=== PATIENT | male | born 1995 | race Caucasian/White ===

== ENCOUNTER 2020-10-11 21:09 | Outpatient (REF) | payer BC, SELFPAY ==
[2020-10-18 09:48] LABS: COVID-19 RT-PCR UVMMC Result Negative (Negative)
== END 2020-10-11 21:29 ==
LOC: NCHCN 21:09
PROVIDERS: PCP Family Medicine; Visit Provider Nurse Practitioner Family
DX: R50.9 Fever, unspecified (principal)
CPT/HCPCS: U0003

== ENCOUNTER 2022-04-19 08:59 | Outpatient (CLI) | payer SELFPAY ==
--- NOTE | 2022-04-19 08:45 | RT.EKG_ITS ---
APPROVED REPORT Exam: Resting ECG Reason for Exam: svt Patient Location: O HR:59 bpm ECG Measurements Heart Rate 59 AXIS AR 152 P 27 QRSd 111 QRS -12 QT 397 T 48 QTc 394 Conclusion Sinus rhythm...normal P axis, V-rate 50- 99 Baseline wander in lead(s) V2,V6
== END 2022-04-19 09:00 | disposition home or self-care (01) ==
LOC: DI.CARD 09:00
PROVIDERS: PCP Family Medicine; Visit Provider Internal Medicine Cardiovascular Disease
DX: I47.1 Supraventricular tachycardia (principal)
CPT/HCPCS: 93010

== ENCOUNTER → 2022-05-15 00:59 | Outpatient (CLI) | payer BC, SELFPAY ==
--- OUTSIDE RECORDS SUMMARY | 2022-05-15 01:01 | XMS_ITS | Encounter Summary ---
:1995 Author Organization [facility] [address] Care Team Providers Name Role Phone Hue De APRN Primary Care Provider Encounter Details Date Type Department Care Team Description 05/07/2022 Telephone Cardiology at [facility] [place] [address] Social History Tobacco Use Types Packs/Day Years Used Date Never Assessed Sex Assigned at Date Recorded Not on file documented as of this encounter Miscellaneous Notes Telephone Encounter - Margret Richards - 05/07/2022 10:42 AM EDT Faxed request to [facility] for all ECG's (specifically the one done while in the ED, while he was in SVT), ambulatory monitoring and echo report at [phone]. Margret Richards EP Scheduling documented in this encounter Plan of Treatment Not on filedocumented as of this encounter Visit Diagnoses Not on filedocumented in this encounter Care Teams Clothing Sales Assistant Relationship Specialty Start Date End Date Hue De APRN PCP - General Family Medicine 04/25/22 [place] [address] documented as of this encounter
--- OUTSIDE RECORDS SUMMARY | 2022-05-15 01:01 | XMS_ITS | Encounter Summary ---
:1995 Author Organization [facility] Address [address] [place] [address] Care Team Providers Name Role Phone Jemal Andujar MD Primary Care Provider Encounter Details Date Type Department Care Team Description 10/12/2020 Lab Requisition [facility] Outr Resulting Lab, Pathology & Laboratory Provider [facility] [address], [place] [id number] Social History Tobacco Use Types Packs/Day Years Used Date Never Assessed Sex Assigned at Date Recorded Not on file documented as of this encounter Plan of Treatment Not on filedocumented as of this encounter Procedures Procedure Name Priority Date/Time Associated Diagnosis Comme nts COVID-19 TEST [facility] Today 10/11/2020 14:00 LAB PCR EST COVID-19 TESTING Routine 10/11/2020 14:00 Results for this EST procedure are i n the results section. documented in this encounter Results COVID-19 TEST [facility] LAB PCR (10/11/2020 14:00 EST) Specimen Swab - Entire nasopharynx (body structur e) Performing Organization Address City/State/ZIP Code Phon e Number [facility] [address] [place] [address] SERVICES COVID-19 TESTING (10/11/2020 14:00 EST) COVID-19 rt-PCR Negative Negative [facility] Result Comment: [facility] Negative results do not prec lude 2019-nCoV infection and should not be used as the sole basis for treatment or other patient management decisions. Negative results must be combined with clinical observa SERVICES tions, patient history, and epidemiological informatio n. This test was developed and its performance characteristics determined by [facility]. It has not been cleared or approved by the [place] Food and Drug Administration. FDA does not require this test to go through premarket FDA review. This t est is used for clinical purposes. It should not be regarded as investigational or for research. This laboratory is certified under the Clinical Laboratory Improvement Amendm ents (CLIA) as qualified to perform high complexity clinical laboratory testing. This test is based on the CD C COVID-19 Emergency Use Authorization (EUA) assay, with minor modification as defined by the FDA Performed on the [facility] 7 Flex . Performing Lab [place] [facility] Specimen Swab Performing Organization Address City/State/ZIP Code Phon e Number [facility] [address] [place] [address] SERVICES documented in this encounter Visit Diagnoses Not on filedocumented in this encounter Care Teams Passenger Service Representative Relationship Specialty Start Date End Date Jemal Andujar MD PCP - General 09/08/[address] [place] [address] [place] [address] documented as of this encounter
--- OUTSIDE RECORDS SUMMARY | 2022-05-15 01:01 | XMS_ITS | Clinical Summary ---
:1995 Author Organization [facility] Address [address] [place] [address] Care Team Providers Name Role Phone Jemal Andujar MD Primary Care Provider Social History Tobacco Use Types Packs/Day Years Used Date Never Assessed Sex Assigned at Date Recorded Not on file Plan of Treatment Not on file Care Teams Jewelry Bearing Maker Relationship Specialty Start Date End Date Jemal Andujar MD PCP - General 09/08/[address] [place] [address] [place], [place] [address]
--- OUTSIDE RECORDS SUMMARY | 2022-05-15 01:01 | XMS_ITS | Encounter Summary ---
:1995 Author Organization [facility] [place] [address] Care Team Providers Name Role Phone Hue De APRN Primary Care Provider Reason for Referral Consultation (Routine) - Pending Review Specialty Diagnoses / Referred By Referred To Cont act Procedures Contact Electrophysiology / Diagnoses Supraventricular tachycardia Maria E Alcantara MD [facility] Cardiology [address] [place], [place] [address] [address] [place], [place] Phone: [phone] Referral ID Status Reason Start Expiration Visits Visits Date Date Requested Authorized [id number] Pending Consult, 04/25/2022 04/25/2023 6 6 Review Test & Treat PCP Updated and/or Approved Encounter Details Date Type Department Care Team Description 04/25/2022 Transcribe Orders eDH Incoming Maria E Alcantara, Supravent ricular Referrals MD tachycardia [phone] [place] [address] Social History Tobacco Use Types Packs/Day Years Used Date Never Assessed Sex Assigned at Date Recorded Not on file documented as of this encounter Plan of Treatment Scheduled Referrals Name Type Priority Associated Diagnoses Order S chedule Referral to Outpatient Routine Supraventricular Ordered: Cardiology Referral tachycardia 04/25/2022 documented as of this encounter Visit Diagnoses Diagnosis Supraventricular tachycardia Other specified cardiac dysrhythmias documented in this encounter Care Teams Economic Consultant Relationship Specialty Start Date End Date Hue De APRN PCP - General Family Medicine 04/25/22 [place], [place] [id number] documented as of this encounter
--- NOTE | 2022-05-15 15:46 | DI.US_ITS ---
APPROVED REPORT EXAM: Comprehensive 2D, Doppler, and color-flow Echocardiogram Patient Location: Out-Patient Transmitter Engineer In Charge: Klesey Ortiz RDCS (AE) Indications: SVT Other Information Study Quality: Good Conclusion Normal left ventricular chamber size and wall thickness. Estimated ejection fraction is 60 to 65%. Wall motion is normal Normal right ventricular size and systolic function Both atria are normal in size There is no structural or hemodynamically significant valvular disease Estimated right ventricular systolic pressure is 30 mmHg Wall motion Left Ventricle The left ventricle is normal size. The left ventricular systolic function is normal. The left ventric ular ejection fraction is within the normal range. There is normal left ventricular wall thickness. T here is normal LV segmental wall motion. There is no ventricular septal defect visualized. LVEF is 60 -65%. Right Ventricle The right ventricle is normal size. The right ventricular systolic function is normal. The RVSP is 30 .0mmHg. Atria The left atrium size is normal. The right atrium size is normal. The interatrial septum is intact wit h no evidence for an atrial septal defect. Aortic Valve The aortic valve is normal in structure. There is no aortic valvular stenosis. No aortic regurgitatio n is present. Mitral Valve The mitral valve is normal in structure. No evidence of mitral valve stenosis. Trace mitral regurgita tion. Tricuspid Valve The tricuspid valve is normal in structure. There is no tricuspid valve stenosis. Mild tricuspid regu rgitation. Pulmonic Valve The pulmonary valve is normal in structure. There is no pulmonic valvular stenosis. Trace to mild pul shelly regurgitation. Great Vessels The aortic root is normal in size. The ascending aorta is normal in size. Aortic arch is normal in ca liber. IVC is normal in size and collapses >50% with inspiration. Pericardium There is no pericardial effusion. 2D Dimensions IVSD d PLAX 0.89 cm M: 0.6-1.2 LV Vol A2C d MOD 152.8 mL LVPW d PLAX 0.90 cm M: 0.6 - 1.2 LV Vol A4C d MOD 130.1 mL LVID d PLAX 5.62 cm M: 4.2 - 5.8 LA vol/ BSA A2C s A-L 32.1 mL/m2 LVDs 3.60 cm M: 2.5 - 4.0 LA vol/ BSA A4C s A-L 26.2 mL/m2 Ao Root d 3.42 cm M: 3.1 - 3.7 LA Vol/ BSA Biplane s A-L 29.1 mL/m2 RA Area A4C 19.20 cm2 LA Area A4C s MOD 20.80 cm2 RA Vol/ BSA A4C s A-L 22.4 mL/m2 LA Area A2C s MOD 23.11 cm2 Ao Asc Diam d 3.26 cm M: 2.6 - 3.4 LV EF A4C MOD 60.2 % LV EF Teichholz 64.0 % LV EF A2C MOD 65.1 % LVEF (Goldberg's) 62.92 % M: 52 - 72 LV EF Biplane MOD 62.9 % LV Volume 100.48 mL M: 62 - 150 SV 89.06 mL LV Volume Index 42.21 mL/m2 M: 34 - 74 SV Index 37.39 mL/m2 LV Vol Biplane MOD 141.5 mL FS 35.25 % LV Diastology MV E' medial 0.148 (>0.07 m/s) E/A Ratio 1.7 LV E/e MED 6.20 (<14) MV E Vmax 0.92 (0.4-1.3 m/s) MV E' lateral 0.189 (>0.1 m/s) MV A Vmax 0.55 (0.4-1.3 m/s) LV E/e LAT 4.85 (<14) MV E/A Ratio 1.56 MV E/E' medial 6.25 MV E/E' lateral 4.88 Aortic Valve LVOT Area 3.89 cm2 AoV Area Vmax 3.28 cm2 LVOT Vmax 1.33 m/s AoV Area/ BSA (Vmax) 1.38 cm2/m2 LVOT Mean Sadiq. 0.79 m/s MABEL Mean Sadiq. 2.83 cm2 LVOT Peak Grad 7.1 mmHg MABEL Mean Sadiq. Index 1.19 cm2/m2 LVOT Mean Grad 3.1 mmHg LVOT VTI 0.266 m LVOT Diam s 2.20 cm AoV Vmax 1.58 m/s Velocity Ratio 0.84 AoV Mean Sadiq. 1.09 m/s AoV Peak Grad 9.9 mmHg LVOT SV 103.57 mL AoV Mean Grad 5.4 mmHg AoV VTI 0.290 m AoV Area VTI 3.57 cm2 AoV Area/ BSA (VTI) 1.50 cm/m2 Mitral Valve MV DT 177 (160-240 msec) MV PHT 51 msec MV Area PHT 4.29 cm2 MV VTI 0.318 m MV Area VTI 3.26 (4.0-6.0 cm2) Pulmonary Valve PV Vmax 1.13 (0.5-1.5 m/s) RVOT Peak Gr. 2.84 mmHg PV Peak Grad 5.1 mmHg RVOT Mean Gr. 1.35 mmHg PV Mean Grad 2.6 mmHg RVOT VTI 0.192 m PV VTI 0.233 m RVOT Vmax 0.84 m/s Tricuspid Valve TR Peak Grad 27.0 mmHg TR Vmax 2.60 m/s RA Pressure 3.00 mmHg RVSP (TR) 30.0 mmHg
== END ==
PROVIDERS: PCP Nurse Practitioner Family; Visit Provider Internal Medicine Cardiovascular Disease
DX: I47.1 Supraventricular tachycardia (principal)
CPT/HCPCS: 93306

== ENCOUNTER 2022-10-03 09:57 | Outpatient (CLI) | payer BC, SELFPAY ==
--- NOTE | 2022-10-03 09:45 | RT.EKG_ITS ---
APPROVED REPORT Exam: Resting ECG Reason for Exam: palpitations Patient Location: O HR:78 bpm ECG Measurements Heart Rate 78 AXIS FL 152 P 32 QRSd 100 QRS -11 QT 360 T 32 QTc 411 Conclusion Sinus rhythm...normal P axis, V-rate 50- 99 Normal Electrocardiogram
== END 2022-10-03 09:58 | disposition home or self-care (01) ==
LOC: DI.CARD 09:58
PROVIDERS: PCP Nurse Practitioner Family; Visit Provider Internal Medicine Cardiovascular Disease
DX: I47.1 Supraventricular tachycardia (principal); R00.2 Palpitations
CPT/HCPCS: 93010

== ENCOUNTER 2023-03-21 14:36 | Outpatient (REF) | payer BC, SELFPAY ==
--- NOTE | 2023-03-21 13:10 | NAIL_PTH ---
PATIENT: Mikael Lugo LOC: [facility] U#:[id number] AGE/SX: 27/M ROOM: RE03/21/[address]: Esvin King DNP : 1995 BED: DIS: 03/21/2023 SPEC #: [id number] RECD: 03/22/23 12:35 STATUS: MITZI REQ #: [id number] DONNA: 03/21/23 13:[address]: Esvin Schmitz DEPT: Surgical Specimen RECD BY: Kiara Albert ENTERED: 03/22/23 12:35 SP TYPE: NAIL OTHR DR: Hue De Tissues: 1 - NAIL CLIPPINGS Procedures: GROSS AND MICRO LEVEL 2 Comments: [id number]
[2023-03-21 19:22] LABS: ALT 45 U/L (16-63); AST 31 U/L (15-37); Albumin 4.3 g/dL (3.4-5.0); Alkaline Phosphatase 79 U/L (46-116); Anion Gap 10.4 mmol/L (3-11); BUN 16 mg/dL (7-18); Bilirubin, Total 1.3 mg/dL (0.2-1.0); CO2 26.6 mmol/L (21.0-32.0); CREATININE 1.2 mg/dL (0.70-1.30); Calcium 9.1 mg/dL (8.5-10.1); Chloride 101 mmol/L (98-107); Glucose 104 mg/dL (74-106); Potassium 3.7 mmol/L (3.5-5.1); Sodium 138 mmol/L (136-145); Total Protein 8.1 g/dL (6.4-8.2)
== END 2023-03-21 14:37 | disposition home or self-care (01) ==
LOC: LBN 14:36
PROVIDERS: PCP Nurse Practitioner Family; Visit Provider Nurse Practitioner Family
DX: B35.1 Tinea unguium (principal); L60.8 Other nail disorders
CPT/HCPCS: 80053; 87101; 87206; 88302

== ENCOUNTER 2023-03-28 11:38 | Outpatient (REF) | payer BC, SELFPAY ==
[2023-04-10 14:28] LABS: Fungus Smear No Fungi Seen
== END 2023-03-28 11:39 | disposition home or self-care (01) ==
LOC: NCHCN 11:38
PROVIDERS: PCP Nurse Practitioner Family; Visit Provider Nurse Practitioner Family
DX: B35.1 Tinea unguium (principal)
CPT/HCPCS: 87101; 87107; 87206

== ENCOUNTER 2023-05-02 15:50 | Outpatient (REF) | payer BC, SELFPAY ==
[2023-05-02 18:53] LABS: ALT 38 U/L (16-63); AST 34 U/L (15-37); Albumin 4.2 g/dL (3.4-5.0); Alkaline Phosphatase 77 U/L (46-116); Anion Gap 10.5 mmol/L (3-11); BUN 15 mg/dL (7-18); Bilirubin, Total 0.9 mg/dL (0.2-1.0); CO2 26.5 mmol/L (21.0-32.0); CREATININE 1.2 mg/dL (0.70-1.30); Chloride 104 mmol/L (98-107); Glucose 85 mg/dL (74-106); Potassium 4.4 mmol/L (3.5-5.1); Sodium 141 mmol/L (136-145); Total Protein 7.9 g/dL (6.4-8.2)
== END 2023-05-02 15:51 | disposition home or self-care (01) ==
LOC: NCHCN 15:50
PROVIDERS: PCP Nurse Practitioner Family; Visit Provider Nurse Practitioner Family
DX: B35.1 Tinea unguium (principal)
CPT/HCPCS: 80053